=== PATIENT | male | born 1985 | race African-American/Black ===

== ENCOUNTER 2017-07-15 12:27 | Emergency (ER) | payer MEDICAID ==
[~2017-07-15] VITALS: Ht 172.7 cm; Wt 77.0 kg
[2017-07-15 15:26] LABS: BASOPHILS % 0.4 % (0.0-2.0); EOSINOPHILS % 0.5 % (0.0-5.0); HEMATOCRIT. 46.9 % (42.0-52.0); HEMOGLOBIN. 15.8 g/dL (14.0-18.0); LYMPHOCYTES % 22.6 % (20.0-50.0); MEAN CORPUSCULAR HEMOGLOBIN 29.1 pg (28.0-32.0); MEAN CORPUSCULAR VOLUME 86.4 fL (80.0-94.0); MEAN PLATELET VOLUME 8.4 fl (7.4-10.4); MONOCYTES % 6.8 % (2.0-8.0); NEUTROPHILS % 69.7 % (40.0-76.0); PLATELET 216 x1000/uL (130-400); RED BLOOD CELL COUNT 5.43 mill/uL (4.7-6.1); RED CELL DISTRIBUTION WIDTH 12.7 % (11.6-14.6)
[2017-07-15 15:29] LABS: CHLORIDE 105 mEq/L (98-107)
[2017-07-15 16:31] VITALS: BP 115/78
== END 2017-07-15 16:36 | disposition home or self-care (01) ==
LOC: ER 13:29
DX: R42 Dizziness and giddiness (principal); R20.0 Anesthesia of skin; M54.9 Dorsalgia, unspecified; R03.0 Elevated blood-pressure reading, without diagnosis of hypertension; K14.0 Glossitis; F17.210 Nicotine dependence, cigarettes, uncomplicated
CPT/HCPCS: 36415; 71045; 80053; 85025; 93005; 99285; Z7610